=== PATIENT | male | born 1970 | race Caucasian/White ===

== ENCOUNTER → 2019-03-18 | Outpatient (CLI) | payer OTHER ==
[~2019-03-18] MED LIST: Advil200 M1; ESCI10; HYDR1TAB94 PO; METR500 PO; NAPR550 PO
[2019-03-22 12:08] LABS: HSV-1 DNA Negative (Negative); HSV-2 DNA Positive (Negative)
== END | disposition home or self-care (01) ==
LOC: LAB SHORT 15:33 → LAB 15:33
DX: R21 Rash and other nonspecific skin eruption (principal)
CPT/HCPCS: 87529

== ENCOUNTER 2022-12-18 11:09 | Day surgery (SDC) | payer OTHER ==
[~2022-12-18] VITALS: Ht 180.3 cm; Wt 83.6 kg
[2022-12-18] MEDS ORDERED: Budeprion Xl300 MG (11:31)
[2022-12-18 13:46] VITALS: BP 132/63
== END 2022-12-18 13:47 | disposition home or self-care (01) ==
LOC: ORSCSDS 11:09
PROVIDERS: Internal Medicine Gastroenterology
PROC: 0DBM8ZX Excision of Descending Colon, Via Natural or Artificial Opening Endoscopic, Diagnostic (ICD-10-PCS; principal; 2022-12-18 12:30)
DX: Z12.11 Encounter for screening for malignant neoplasm of colon (principal); D12.4 Benign neoplasm of descending colon; K64.8 Other hemorrhoids; K57.50 Diverticulosis of both small and large intestine without perforation or abscess without bleeding; Z86.010 Personal history of colon polyps; F17.210 Nicotine dependence, cigarettes, uncomplicated; Z79.899 Other long term (current) drug therapy
CPT/HCPCS: 88305; J2704; J7120